=== PATIENT | female | born 1995 ===

== ENCOUNTER 2023-12-25 01:58 | Inpatient (IN) | payer SELFPAY ==
[2023-12-25] MEDS ORDERED: Carboprost Tromethamine 250 MCG/1 mL Vial IM PRN (04:32)
[2023-12-25] MEDS ORDERED: Misoprostol 200 MCG Tab PO PRN (04:32)
[2023-12-25] MEDS ORDERED: Sodium Chloride 0.9% 20 ML SDV IV PRN (04:32)
[2023-12-25] MEDS ORDERED: Nalbuphine 10 MG/0.5 ML Syringe IVPUSH PRN (04:32)
[2023-12-25] MEDS ORDERED: Methylergonovine 0.2 MG/1 ML Amp IM PRN (04:32)
[2023-12-25] MEDS ORDERED: Sodium Chloride 0.9% 10 ML Syringe FLUSH PRN (04:32)
[2023-12-25] MEDS ORDERED: Tranexamic Acid IN NACL,ISO-OS 1,000 MG in Premix Bag 1 BAG IV PRN (04:32)
[2023-12-25] MEDS ORDERED: Water For Irrigation,Sterile 1,000 ML Container IRR PRN (04:32)
[2023-12-25] MEDS ORDERED: Sodium Chloride 0.9% 2.5 ML Syringe FLUSH PRN (04:32)
[2023-12-25] MEDS ORDERED: Lidocaine 1% 50 ML MDV INJECT PRN (04:32)
[2023-12-25 04:57] LABS: HEMATOCRIT 38.6 % (37.0-47.0); HEMOGLOBIN 12.7 g/dL (12.0-16.0); MEAN CORPUSCULAR HEMOGLOBIN 27.2 pg (28.0-32.0); MEAN CORPUSCULAR HGB CONC 32.9 g/dL (32.0-36.0); MEAN CORPUSCULAR VOLUME 82.7 fL (83.0-99.0); MEAN PLATELET VOLUME 12.5 fL (9.4-12.3); PLATELET COUNT,PLT 168 K/uL (150-400); RED BLOOD CELL COUNT 4.67 M/uL (4.10-5.30); WHITE BLOOD CELL COUNT,WBC 10.13 K/uL (3.9-11.3)
[2023-12-25] MEDS: Acetaminophen 500 MG Tab PO ONE ×2 (05:23→14:40)
[2023-12-25] MEDS: Lactated Ringers 1,000 ML IV SCH (08:40)
[2023-12-25] MEDS ORDERED: Ropivacaine HCl/PF 200 ML ONE (09:27)
[2023-12-25] MEDS ORDERED: Phenylephrine HCl In 0.9% NaCl 1 MG/10 ML Syringe ONE (09:27)
[2023-12-25] MEDS ORDERED: Bupivacaine 0.5% 10 ML SDV ONE (09:27)
[2023-12-25] MEDS: Ropivacaine HCl/PF 400 MG in Premix Bag 1 BAG EPIDUR SCH (09:40)
[2023-12-25] MEDS ORDERED: ePHEDrine 50 MG/ML SDV IVPUSH PRN ×2 (09:51)
[2023-12-25] MEDS: Phenylephrine HCl In 0.9% NaCl 1 MG/10 ML Syringe IVPUSH PRN (11:19)
[2023-12-25] MEDS ORDERED: Phenylephrine HCl In 0.9% NaCl 1 MG/10 ML Syringe IVPUSH PRN (11:59)
[2023-12-25] MEDS: Ondansetron 4 MG/2 ML SDV IVPUSH PRN (13:50)
[2023-12-25] MEDS ORDERED: Acetaminophen 500 MG Tab PO ONE (14:45)
[2023-12-25] MEDS: Oxytocin/0.9 % Sodium Chloride 30 UNIT/500 ML BAG IV SCH (16:22)
[2023-12-25] MEDS ORDERED: oxyCODONE 5 MG Tab PO PRN (16:45)
[2023-12-25 17:09] LABS: PH,UMBILICAL ARTERIAL 7.132 (7.18-7.38); PH,UMBILICAL VENOUS 7.277 (7.25-7.45)
[2023-12-25] MEDS: Witch Hazel Medicated Pads 40/Jar TOP PRN (18:35)
[2023-12-25] MEDS: Benzocaine/Menthol 20%-0.5% Spray 78 GM Cannister TOP PRN (18:36)
[2023-12-25] MEDS: Ibuprofen 800 MG Tab PO PRN (18:36)
[2023-12-25] MEDS: Lanolin 100% Cream 7 GM Tube TOP PRN (18:36)
[2023-12-25] MEDS: Acetaminophen 500 MG Tab PO PRN (22:02)
[2023-12-26 05:59] LABS: HEMATOCRIT 29.7 % (37.0-47.0); HEMOGLOBIN 9.5 g/dL (12.0-16.0)
[2023-12-26] MEDS: Docusate Sodium 100 MG Cap PO PRN (08:35)
== END 2023-12-26 17:50 | disposition home or self-care (01) | DRG 807 ==
LOC: MW.OB 01:58 → MW.OBCHECK 01:58 → MW.OB 04:32 → OBSVTOIN 16:45 → MW.OB 23:26
PROVIDERS: ADMIT Obstetrics & Gynecology; ATTEND Obstetrics & Gynecology
PROC: 10E0XZZ Delivery of Products of Conception, External Approach (ICD-10-PCS; principal; 2023-12-25)
PROC: 0KQM0ZZ Repair Perineum Muscle, Open Approach (ICD-10-PCS; 2023-12-25)
PROC: 3E0R3BZ Introduction of Anesthetic Agent into Spinal Canal, Percutaneous Approach (ICD-10-PCS; 2023-12-25)
PROC: 00HU33Z Insertion of Infusion Device into Spinal Canal, Percutaneous Approach (ICD-10-PCS; 2023-12-25)
PROC: 10907ZC Drainage of Amniotic Fluid, Therapeutic from Products of Conception, Via Natural or Artificial Opening (ICD-10-PCS; 2023-12-25)
DX: O69.81X0 Labor and delivery complicated by cord around neck, without compression, not applicable or unspecified (principal); Z37.0 Single live birth; O70.1 Second degree perineal laceration during delivery; O77.0 Labor and delivery complicated by meconium in amniotic fluid; Z3A.39 39 weeks gestation of pregnancy
CPT/HCPCS: 36415; 51702; 59025; 82803; 85014; 85018; 85027; 86592; 86850; 86900; 86901; A9270-GY; J0665; J2371; J2405; J2590; J2795; J7120